=== PATIENT | female | born 1965 | race Caucasian/White ===

== ENCOUNTER 2021-08-03 12:31 | Outpatient (CLI) | payer OTHER | END 2021-08-03 12:32 | disposition home or self-care (01) | LOC: CSHMAMMO 12:31 | PROVIDERS: ATTEND Family Medicine | DX: Z12.31 Encounter for screening mammogram for malignant neoplasm of breast (principal) | CPT/HCPCS: 77063; 77067 ==

== ENCOUNTER 2022-12-05 15:29 | Outpatient (CLI) | payer BC | END 2022-12-05 15:30 | disposition home or self-care (01) | LOC: CSHMAMMO 15:29 | PROVIDERS: ATTEND Family Medicine | DX: Z12.31 Encounter for screening mammogram for malignant neoplasm of breast (principal); R92.1 Mammographic calcification found on diagnostic imaging of breast | CPT/HCPCS: 77063; 77067 ==